=== PATIENT | male | born 1960 | race Caucasian/White ===

== ENCOUNTER 2025-06-01 21:23 | Emergency (ER) | payer OTHER, MEDICAID ==
[~2025-06-01] VITALS: Ht 172.7 cm; Wt 74.8 kg
[2025-06-01] MEDS ORDERED: NEOMY/BACITRA/POLYMYXIN B OINT UD PACKET TP ONE (22:29)
[2025-06-01 22:31] VITALS: BP 128/87
[2025-06-01] MEDS: NEOMY/BACITRA/POLYMYXIN B OINT UD PACKET TP ONE (22:33)
[2025-06-01] MEDS ORDERED: ACETAMINOPHEN 500 MG TABLET ONE (23:18)
[2025-06-01] MEDS: ACETAMINOPHEN 500 MG TABLET PO ONE (23:23)
[2025-06-02 00:18] VITALS: BP 131/74; O2SAT 99
== END 2025-06-02 00:11 | disposition home or self-care (01) ==
LOC: ER 21:23
DX: S60.221A Contusion of right hand, initial encounter (principal); R51.9 Headache, unspecified; M54.2 Cervicalgia; R07.9 Chest pain, unspecified; R06.00 Dyspnea, unspecified; V43.52XA Car driver injured in collision with other type car in traffic accident, initial encounter; Y93.89 Activity, other specified; Y92.488 Other paved roadways as the place of occurrence of the external cause; Y99.8 Other external cause status
CPT/HCPCS: 70450; 71045; 72125; A4606; A4663; A9150